=== PATIENT | female | born 1975 | race Two or more races ===

== ENCOUNTER 2018-12-27 09:44 | Emergency (ER) | payer MEDICAID ==
[~2018-12-27] VITALS: Ht 154.9 cm; Wt 90.7 kg
[2018-12-27 10:45] LABS: Basophils # (auto) 0.1 uL; Basophils % (auto) 0.5 % (0.0-2.0); Hemoglobin 11.5 g/dL (12.2-16.2); Monocytes # (auto) 0.9 uL; Red Cell Distribution Width 18.2 % (11.8-14.3)
[2018-12-27 10:47] LABS: Eosinophils # (auto) 0.4 uL; Eosinophils % (auto) 2.6 % (0.0-7.0); Hematocrit 36.1 % (36.0-46.0); Lymphocytes # (auto) 1.9 uL; Lymphocytes % (auto) 11.2 % (10.0-50.0); Mean Corpuscular Hemoglobin 22.4 pg (28.0-32.0); Mean Corpuscular Volume 70.2 fL (80.0-100.0); Monocytes % (auto) 5.1 % (0.0-12.0); Neutrophils # (auto) 13.7 uL; Neutrophils % (auto) 80.6 % (37.0-80.0); Platelet Count (auto) 408 10^3/uL (140-450); Red Blood Cells 5.14 10^6/uL (4.0-5.20)
[2018-12-27 11:01] LABS: Albumin 3.8 g/dL (3.4-5.0); Calcium 9.2 mg/dL (8.5-10.1)
[2018-12-27 11:03] LABS: Bilirubin, Total 0.4 mg/dL (0.2-1.0); Total Protein 9.4 g/dL (6.4-8.2)
[2018-12-27] MEDS ORDERED: FUROSEMIDE 40 MG TAB PO ONE (12:30)
[2018-12-27] MEDS ORDERED: cefTRIAXone SOD 1,000 MG VL IM ONE (12:30)
[2018-12-27 13:14] VITALS: BP 100/62
== END 2018-12-27 13:52 | disposition home or self-care (01) ==
LOC: ER 09:44
DX: N39.0 Urinary tract infection, site not specified (principal); M79.605 Pain in left leg; M79.604 Pain in right leg; E86.0 Dehydration
CPT/HCPCS: 36415; 71046; 80053; 85025; 93005; 96372; 99284; J0696